=== PATIENT | female | born 1945 | race Two or more races ===

== ENCOUNTER 2016-10-03 14:48 | Observation (INO) | payer MEDICARE, OTHER ==
[~2016-10-03] VITALS: Ht 162.6 cm; Wt 89.6 kg
[~2016-10-03 14:48] MED LIST: CARV12.52 PO; DXM4T PO; ERGO500029 PO; FURO40TA4 PO; GABA100C PO; ISOS120T6 PO; LANT500T PO; LEVO50TA6 PO; LISI10TA2 PO; OXYC1TAB24 PO; PRE10 PO; SERT50TA9 PO; SIMV40TA5 PO
[2016-10-03 15:01] VITALS: BP 102/63; PULSE 79; RESP 18; O2SAT 92
--- NOTE | 2016-10-03 15:08 | ED.REPORT ---
HPI-General Illness Date of Service Oct 03, 2016 ED Provider: Dr. Carmona 71 y/o female with a hx of renal failure (on dialysis), HTN, DM, multiple CVA and KS (last 3 years ago) presents to the ED complaining of aching jaw pain bilaterally that radiates to her ears, onset two weeks ago. The pt states the pain was initially intermittent but has been constant for the last 3 days. Her pain is slightly exacerbated when she opens and closes her mouth. She denies any trauma to the jaw and is unable to associate it with anything. She also denies hx of TMJ, fever, chills, dizziness, abdominal pain and any change in pain post her dialysis appointment today. The pt did experience intermittent substernal chest pain and shortness of breath throughout last night, which resolved this morning. She states she was at rest when the pain came on. The pt has been taking Methadone 2.5mg. She states it relieves her pain temporarily.She has never experienced similar sx before. Nursing Notes Stated Complaint: JAW PAIN, DIALYSIS PATIENT Chief Complaint: General Complaint Nursing Notes Reviewed: Yes Allergies: Coded Allergies: hydrocodone bitartrate (Verified Allergy, Intermediate, Nausea,Vomiting, ) Scheduled Colestipol HCl (Colestid) 1 Gm Tablet 1 GM PO DAILY Furosemide (Furosemide) 80 Mg Tab 80 MG PO DAILY Losartan Potassium (Losartan Potassium) 100 Mg Tablet 100 MG PO DAILY Methadone (Methadone) 5 Mg Tablet 2.5 MG PO HS Omeprazole (Omeprazole) 20 Mg Capsule.dr 20 MG PO HS Sertraline HCl (Sertraline) 100 Mg Tablet 100 MG PO HS Simvastatin (Simvastatin) 40 Mg Tablet 40 MG PO HS Scheduled PRN Acetaminophen (Acetaminophen) 325 Mg Tablet 325 MG PO Q6H PRN PRN For Pain Calcium Carbonate (Tums) 500 Mg Tab.chew 1-2 MG PO TIDAC PRN PRN For Indigestion Loperamide HCl (Imodium A-D) 2 Mg Capsule 2 MG PO QID PRN PRN For Diarrhea or Loose Stool General Time Seen by MD: 15:08 Chief Complaint Other (jaw pain) Hx Obtained From: Patient Arrived By: Walk-in Sudden in Onset?: Yes Onset Occurred: More than a week ago... (2 weeks) Symptom Duration: Since onset Location: : Face (jaw bilaterally) Quality: Aching Severity: Current: Severe Severity: Maximum: Severe Recent Healthcare: No recent doctor visit Similar Sx Previous: No Past Medical History Past Medical History End stage renal disease on dialysis Reports: Diabetes mellitus, Hypertension, Stroke Past Surgical History catheter placement (dialysis) Reports: , Cholecystectomy, Hysterectomy Smoking History Never Smoker Social History Alcohol Use: Denies alcohol use Drug Use: Denies drug use Ambulatory Status Independent Review of Systems Reports: jaw pain bilaterally Full Review of Systems Constitutional: Denies: Chills, Fever Respiratory: Reports: Shortness of breath (now resolved) Cardiovascular: Reports: Chest pain (now resolved) GI: Denies: Abdominal pain Neurologic: Denies: Dizziness Complete sys rev & neg: except as marked. Physical Exam Vital Signs Vital Signs Date Time Temp Pulse Resp B/P Pulse Ox O2 Delivery O2 Flow Rate FiO2 10/03/16 19:58 79 16 117/52 92 Room Air 10/03/16 17:53 79 137/62 10/03/16 15:01 37.0 79 18 102/63 92 Room Air Initial VS: Reviewed Neck: Supple, Non-tender, Full range of motion Extremities: Vascular intact, Neuro intact, No swelling, No tenderness Skin: Warm, Dry, No cyanosis Neurologic: Alert, Oriented, Nonfocal General/Constitutional: Awake, Alert, Cooperative Distress / Hydration: Positive: Distress moderate Behavior: Positive: Tearful Head / Eyes: Atraumatic, Normocephalic No crepitus with range of motion of the jaw Neck: Atraumatic, Supple, Full range of motion Respiratory / Chest: Atraumatic, Breath sounds = bilat, No rhonchi, No wheezing , No chest tenderness Rales / Rhonchi: Positive: Rales bilateral bases Cardiovascular: Heart rate NL, Regular rhythm, Heart sounds NL, No gallop, No murmurs, No rubs No lower extremity edema Abdomen: Atraumatic, Soft, Non-tender Interpretation & Diagnostics Lab Results Interpretation Result Diagram: 10/04/16 0846 10/04/16 0507 Test 10/03/16 11:00 10/03/16 16:30 Urine Color Yellow (YELLOW) Urine Appearance Cloudy (CLEAR,HAZY) Urine pH 6.0 (5.0-8.0) Urine Specific [place] 1.015 (1.003-1.035) Urine Protein 100mg/dL (NEG,TRACE) Urine Glucose (UA) Negativemg/dL (NEGATIVE) Urine Ketones Tracemg/dL (NEGATIVE) Urine Occult Blood Trace (NEGATIVE) Urine Nitrite Negative (NEGATIVE) Urine Bilirubin Moderate (NEGATIVE) Urine Ictotest Negative (Negative) Urine Urobilinogen Normalmg/dL (NORMAL) Urine Leukocyte Esterase Moderate (NEGATIVE) Urine RBC 0-2/hpf (0-2) Urine WBC 6-10/hpf (0-5) Urine Epithelial Cells Many/hpf (NONE-MOD) Urine Crystals None seen (NONE SEEN) Urine Bacteria Many/hpf (NONE-FEW) Urine Hyaline Casts None/lpf (NONE) Urine Granular Casts None seen (NONE SEEN) Urine Waxy Casts None seen (NONE SEEN) Urine Red Blood Cell Casts None seen (NONE SEEN) Urine White Blood Cell Casts None seen (NONE SEEN) Urine Mucus None seen (None Seen) Urine Trichomonas None seen (NONE SEEN) Urine Yeast None (NONE SEEN) Urinalysis Comment None Urine Culture Reflexed Indicated Hold Jones Top Tube Received (Received) ECG Interpretation ECG Interpretation: Sinus rhythm. Rate 84. Left atrial enlargement No acute ST changes No significant change from 12/03/15 Time: 15:25 Interpreted by: ED physician X-Ray Chest Interpretation Chest Xray Interpretation: IMPRESSION: 1. Left basilar airspace disease probably represents atelectasis. Please correlate clinically to exclude pneumonia. 2. Cardiac enlargement. No overt heart failure. Dictated by: Naman Low M.D. on 10/03/2016 at 14:37 Approved by: Naman Low M.D. on 10/03/2016 at 14:39 View: Portable, 1 view Interpretation / Wet Read by: Interpret - Radiologist Re-Eval/Medical Decision Med Decision/Clinical Course 71-year-old female with a history of end-stage renal disease on dialysis Thursday with last dialysis today, coronary artery disease with 3 reported MIs (no stents or CABG), type II diabetes with poor control presents with 2 weeks of intermittent jaw pain bilaterally that is not worsened by palpation or mastication. The pain has become more constant for the past 3 days and last night she had nonexertional substernal chest pain at 8 out of 10 and shortness of breath that resolved on its own without medication. She did not seek care for this episode. Today she was experiencing severe bilateral jaw pain that was relieved with Dilaudid 0.5 mg IV. Troponin was elevated, and 2 hour troponin elevated further. I consulted with Dr. Tracey in cardiology who recommended heparinization, trending troponins, echo in the morning, possible stress test, and obtaining records from the [facility]. She notes that it would be difficult to exclude acute coronary syndrome given the presenting symptoms/risks factors in light of her renal failure. Dr. Daniel can be consulted if desired. Discussed with the patient and she agrees with this plan. Time of Eval: 18:49 Patient Status: Condition improved Re-Evaluation/Progress Note: Rechecked pt. She reports relief and is not expereincing any pain any more. Time of Eval: 20:22 Re-Evaluation/Progress Note: Rechecked pt. Discussed lab results, imaging results, diagnosis and plan to admit. Pt understands and agrees with the plan for admission. All questions addressed. Consultation #1: Referral / Consult Name: Treva Mg DO Consulted With: Hospitalist Call Returned at: 19:50 Toxicologist: Will see patient, Agrees with eval, Agrees with plan, Accepts admit Consultation #2: Referral / Consult Name: Charity Tracey MD Consulted With: Cardiology Call Returned at: 19:36 Note: Dr. Tracey recomeends trending troponin, heparinization and admit. Counseled Regarding: Diagnosis, Lab results, Need for admission Discharge & Departure Primary Impression: Chest pain Chest pain type: unspecified Qualified Code: R07.9 - Chest pain, unspecified Additional Impressions: Elevated troponin End stage renal failure on dialysis Anemia Anemia type: unspecified type Qualified Code: D64.9 - Anemia, unspecified Hypocalcemia Hypokalemia Hypomagnesemia Jaw pain Disposition: ADMITTED TO HOSPITAL Discharge Condition All VS Reviewed: Yes Condition: Stable Referrals: Gael Carrasquillo MD (PCP) Scribe Attestation Portions of this note were transcribed by Turner Santos. I, , personally performed the history, physical exam and medical decision- making;I reviewed and confirmed the accuracy of the information in the transcribed note. Signed by Kaitlynn Tate. 10/03/16 20:22 copies to: Gael Carrasquillo MD, Gary R DO Oct 03, 2016 15:08 Turner Santos Oct 03, 2016 16:43 Primary Impression: Chest pain Chest pain type: unspecified Qualified Code: R07.9 - Chest pain, unspecified Additional Impressions: Elevated troponin End stage renal failure on dialysis Anemia Anemia type: unspecified type Qualified Code: D64.9 - Anemia, unspecified Hypocalcemia Hypokalemia Hypomagnesemia Jaw pain Disposition: ADMITTED TO HOSPITAL Discharge Condition All VS Reviewed: Yes Condition: Stable Referrals: Gael Carrasquillo MD (PCP) Scribe Attestation Portions of this note were transcribed by Turner Santos. I, , personally performed the history, physical exam and medical decision- making;I reviewed and confirmed the accuracy of the information in the transcribed note. Signed by Kaitlynn Tate. 10/03/16 20:22 copies to: Gael Carrasquillo MD, Gary R DO Oct 03, 2016 15:08 Turner Santos Oct 03, 2016 16:43
--- NOTE | 2016-10-03 15:40 | DRSVH ---
PROCEDURE: X-RAY CHEST ONE VIEW, PORTABLE ([id number]) INDICATIONS: Chest pain. TECHNIQUE: One view of the chest was acquired. COMPARISON: [facility], , CHEST 1VW (PORTABLE), 06/22/2014, 15:26. FINDINGS: Surgical changes and devices: Previously seen right-sided central line catheter has been removed. Lungs and pleura: The aeration of the lungs is similar to the prior study. Minimal left basilar airs pace disease and left perihilar airspace disease appears to be present. No overt heart failure or la rge effusion is evident. Mediastinum: Mediastinal contours appear normal. Heart size appears enlarged. There is aortic athe rosclerosis. Bones and chest wall: No suspicious bony lesions. Overlying soft tissues appear unremarkable. IMPRESSION: 1. Left basilar airspace disease probably represents atelectasis. Please correlate clinically to exclude pneumonia. 2. Cardiac enlargement. No overt heart failure. Dictated by: Naman Low M.D. on 10/03/2016 at 14:37 Approved by: Naman Low M.D. on 10/03/2016 at 14:39
[2016-10-03 16:38] LABS: BASOPHILS % (AUTO) 0.5 % (0-3); MONOCYTES % (AUTO) 14.7 % (4-12); Mean Corpuscular Hemoglobin 30.2 pg (27.0-35.0); Mean Corpuscular Volume 93.8 fL (81-100); NEUTROPHILS % (AUTO) 64.6 % (40-74); Platelet Count 192 bil/L (150-400)
[2016-10-03] MEDS ORDERED: HYDROmorphone 1 mg/mL Inj IVPUSH ONE (16:40)
[2016-10-03 17:00] LABS: Magnesium 1.5 mg/dL (1.6-2.6)
[2016-10-03 17:07] LABS: TROPONIN T 0.076 ug/L (0.0-0.011)
[2016-10-03 17:53] VITALS: BP 137/62; PULSE 79
[2016-10-03] MEDS ORDERED: Alum-Mag Hydrox-Simeth 30 mL Suspension PO PRN ×2 (19:55→22:30)
[2016-10-03] MEDS ORDERED: Heparin 5,000 Unit/mL Inj IVPUSH ONE (19:55)
[2016-10-03] MEDS ORDERED: Ondansetron 2 mg/mL 2 mL Inj IVPUSH PRN ×2 (19:55→22:30)
[2016-10-03 19:58] VITALS: BP 117/52; PULSE 79; RESP 16; O2SAT 92
[2016-10-03] MEDS ORDERED: Heparin 5,000 Unit/mL Inj IVPUSH PRN (20:05)
[2016-10-03] MEDS ORDERED: Heparin 25K Unit/500mL 0.45 NS 25,000 UNIT in IV Premix 1 EACH IV SCH ×2 (20:05→23:05)
[2016-10-03 20:15] VITALS: BP 117/52; PULSE 79; RESP 16; O2SAT 92
[2016-10-03] MEDS ORDERED: COLE1TAB PO (20:36)
[2016-10-03] MEDS ORDERED: LOSA100T29 PO (20:36)
[2016-10-03] MEDS ORDERED: OMEP20CA11 PO (20:36)
[2016-10-03] MEDS ORDERED: FRSM80T PO (20:36)
[2016-10-03] MEDS ORDERED: SERT100T9 PO (20:36)
[2016-10-03] MEDS ORDERED: METH5TAB3 PO (20:36)
[2016-10-03] MEDS ORDERED: LOPE-147 PO (20:38)
[2016-10-03] MEDS ORDERED: CALC500T9 PO (20:38)
[2016-10-03 20:49] VITALS: BP 122/62; PULSE 90; RESP 20; O2SAT 92
[2016-10-03] MEDS ORDERED: Senna-Docusate 8.6-50 mg Tablet PO PRN (22:30)
[2016-10-03] MEDS ORDERED: Polyethylene Glycol (PEG) 17 Gm Powder PO PRN (22:30)
[2016-10-03] MEDS ORDERED: Atropine 1 mg/10 mL (Code) Syringe IVPUSH PRN (22:30)
[2016-10-03] MEDS: Sodium Chloride LOK Flush 10 mL Syringe IVFLUSH SCH (23:30)
[2016-10-04] VITALS (7 sets, daily range): BP systolic 94–122; BP diastolic 37–62; PULSE 76–86; RESP 16–18; O2SAT 93–97
--- NOTE | 2016-10-04 | NUR ---
Admit note Pt arrived to [facility] at 2039. Pt stating came to ER due to increased Jaw pain, pt reports jaw pain at 2/10 upon arrival. Placed pt on tele. Pt has heparin drip infusing from ER at 1000 units/hr. Pt is alert and oriented X3. Med rec and admit questions done by admit RN.
--- NOTE | 2016-10-04 00:49 | PCM.HPMED ---
Subjective Date of Service Oct 04, 2016 Primary Provider: Admitting Physician: Treva Mg DO Primary Care Physician: Gael Carrasquillo MD Attending Physician: Treva Mg DO Admit Status: From the Emergency Department Chief Complaint: Chest pain, jaw pain History of Present Illness: Patient is a 71 y/o female with a hx of ESRD on dialysis, HTN, DM, multiple CVA and CA (last 3 years ago) who presents with aching jaw pain bilaterally that radiates to her ears, onset two weeks ago. She states the pain was initially intermittent but has been constant for the last 3 days. Her pain is slightly exacerbated when she opens and closes her mouth, but denies any worsening with exertion. She denies any trauma to the jaw and is unable to associate it with anything. The pt did experience intermittent substernal chest pain and shortness of breath throughout last night, which resolved this morning. The chest pain is a non radiating, aching substernal pain that occurs at rest intermittently. Her shortness of breath also occurs intermittently at rest and lasts on average about 30 seconds. The pt has been taking Methadone 2.5mg. She states it relieves her pain temporarily. She has never experienced similar sx before. She denies hx of TMJ, fever, chills, dizziness, abdominal pain, vomiting , diaphoresis, palpitations, dizziness, or fainting. In the ED, BP was 117/52, Hb 9.8, Hct 30.4, K 3.1, Cl 89, CO2 31, Cr 2.82, glucose 132, Mg 1.5, troponin 0.076, CRP 4.7, ESR 59. CXR shows left basilar atelectasis and cardiomegaly without pulmonary edema. Review of Systems: Comprehensive review of systems conducted and was negative except for the pertinent positives listed above. Allergies Coded Allergies: hydrocodone bitartrate (Verified Allergy, Intermediate, Nausea,Vomiting, ) Home Medications Furosemide 80 mg daily Imodium 4 mg QID PRN Losartan 100 mg daily Methadone 2.5 mg qhs Omeprazole 20 mg qhs Sertraline 100 mg qhs Simvastation 40 mg qhs PMH End-stage renal disease, on hemodialysis History of chronic congestive heart failure, diastolic History of arteriosclerotic cardiovascular disease, status post NSTEMI. Obesity Hyperlipidemia. History of cerebrovascular accident. (Patient reports a history of 7-9 TIAs) Morbid obesity. Hypertension. Type 2 diabetes mellitus. History of septic thrombophlebitis in the left upper extremity, Dec 2012. Anemia, chronic, secondary to end-stage renal disease Diabetic neuropathy, severe retinopathy with patient losing her vision, and nephropathy Surgical History Catheter placement (dialysis) Cholecystectomy Hysterectomy Family History Father: CA, stroke Mother: Stroke Social History Hx Alcohol Use: No Hx Substance Use: No Hx Tobacco Use: Yes ("now and then") Smoking Status: Never Smoker Exam Vital Signs Vital Sign - Last Date Time Temp Pulse Resp B/P Pulse Ox O2 Delivery O2 Flow Rate FiO2 10/04/16 00:35 36.7 80 18 94/37 93 Room Air Exam General: Alert, Oriented X3, Cooperative, No acute distress Head: Normocephalic, atraumatic. External ears normal. Eyes: PERRLA, EOMI. Anicteric sclerae. Mouth: Mouth normal, Mucous membranes moist/pink. No crepitus with range of motion of the jaw Neck: Neck supple with full range of motion. Chest& Lungs: Clear to auscultation bilaterally with no crackles, wheezes, or rhonchi. good inspiratory effort Cardiovascular: Regular rate/rhythm, Normal S1, Normal S2, No murmurs/rubs/ gallops, pulses equal upper and lower extremities GI: Non-tender, Non-distended, No masses, Normoactive bowel tones, Soft : no mejia in place Musculoskeletal: Normal range of motion, no joint erythema / edema Extremities: No cyanosis/clubbing/edema bilaterally Neurological: Grossly neurologically intact. Normal speech Lymph: no cervical or supraclavicular lymphadenopathy Psych: normal affect Lab and Diagnostics Result Diagram: 10/03/16 1630 10/03/16 1630 X-Rays, CTs and MRIs Patient Name: ELIAN SAVAGE MR#: [id number] Location: [facility] [place] Ordering Phys: Miguel Carmona DO Date of Service: 10/03/16 1509 PROCEDURE: X-RAY CHEST ONE VIEW, PORTABLE ([id number]) INDICATIONS: Chest pain. TECHNIQUE: One view of the chest was acquired. COMPARISON: [facility], , CHEST 1VW (PORTABLE), 06/22/2014, 15:26. FINDINGS: Surgical changes and devices: Previously seen right-sided central line catheter has been removed. Lungs and pleura: The aeration of the lungs is similar to the prior study. Minimal left basilar airspace disease and left perihilar airspace disease appears to be present. No overt heart failure or large effusion is evident. Mediastinum: Mediastinal contours appear normal. Heart size appears enlarged. There is aortic atherosclerosis. Bones and chest wall: No suspicious bony lesions. Overlying soft tissues appear unremarkable. IMPRESSION: 1. Left basilar airspace disease probably represents atelectasis. Please correlate clinically to exclude pneumonia. 2. Cardiac enlargement. No overt heart failure. Dictated by: Naman Low M.D. on 10/03/2016 at 14:37 Approved by: Naman Low M.D. on 10/03/2016 at 14:39 Assessment & Plan Patient is a 71 y/o female with a hx of ESRD on dialysis, HTN, DM, multiple CVA and CA (last 3 years ago) who presents with aching jaw pain and chest pain. Acute chest pain. Present on admission. - Pt reports chest pain, jaw pain, and shortness of breath which occurs intermittently and not associated with exercise. While this appears to be noncardiac, she has a significant cardiovascular personal and family history. Troponin is chronically elevated, but increased on repeated draws. Per Dr. Tracey , will start heparin gtt - Trend troponin - Heparin gtt - ASA 325 once followed by 81 mg daily - No beta allison given hypotension - Atorvastatin 40mg qhs - Plavix 300 mg once followed by 75 mg daily - Echocardiogram in AM - PRN Nitro and morphine - O2 as needed - Monitor on telemetry - lipid panel, hgba1c pending - Obtain records from [facility] - Dr. Daniel will see pt in AM. Please contact. We appreciate his input. End stage renal disease on dialysis - Dialysis on MWF. Pt had Thursday dialysis. - Nephrology consult if pt stays until Thursday Diabetes mellitus - Glucose 132 on admission. Pt not on home meds. - Monitor glucose daily in [facility] Electrolyte abnormalities, acute. - Hypokalemia - likely secondary to hypomagnesemia. Gave KCl 20 meq PO. - Hypomagnesemia. Gave magnesium sulfate 2g once. Recheck Mg in AM. History of chronic diastolic congestive heart failure. Last echo 01/01/14: The left ventricle is normal in size. There is normal left ventricular wall thickness. The ejection fraction is estimated to be 60-65%. Hypertension - Continue home furosemide and losartan Hx of stroke - Continue simvastatin Depression - Continue home sertraline Chronic pain - Continue home methadone - Bowel regimen as needed - Antiemetic as needed Patient is admitted under observation status with expected length of stay less than 2 midnights due to severity of presenting symptoms, risk of adverse event, and complexity of treatment plan. Pain Evaluation: Adequate Pain Control GI Prophylaxis: Not indicated VTE Prophylaxis: Other (heparin gtt) Resuscitation Status: DNR/DNI:Do Not Resuscitate/Intubate Gonzalez Plascencia Oct 04, 2016 00:49 Treva Mg DO Oct 04, 2016 04:21
[2016-10-04] MEDS ORDERED: Potassium Chloride 20 mEq SR Tablet PO ONE (00:55)
[2016-10-04] MEDS ORDERED: Magnesium Sulf 2 Gm/50mL Water 2 GM in IV Premix 1 EACH IV ONE (00:55)
[2016-10-04] MEDS ORDERED: 0.9% Sodium Chloride 100 ML ONE (01:41)
[2016-10-04] MEDS: Heparin 5,000 Unit/mL Inj IVPUSH PRN ×2 (04:19→14:51)
[2016-10-04 05:48] LABS: BASOPHILS % (AUTO) 0.8 % (0-3); EOSINOPHILS % (AUTO) 5.6 % (0-5); MONOCYTES % (AUTO) 16.7 % (4-12); Mean Corpuscular Hemoglobin 30.6 pg (27.0-35.0); Mean Corpuscular Volume 94.6 fL (81-100); NEUTROPHILS % (AUTO) 44.1 % (40-74); Platelet Count 199 bil/L (150-400)
[2016-10-04 06:29] LABS: ERYTHROCYTE SEDIMENTATION RATE 62 mm/hr (0-40)
[2016-10-04] MEDS ORDERED: Pantoprazole 20 mg ER24 Tablet PO SCH (07:30)
[2016-10-04 08:06] LABS: Magnesium 2.4 mg/dL (1.6-2.6)
[2016-10-04 08:08] LABS: TROPONIN T 0.095 ug/L (0.0-0.011)
[2016-10-04] MEDS: Sodium Chloride LOK Flush 10 mL Syringe IVFLUSH SCH ×2 (08:15→16:30)
--- NOTE | 2016-10-04 10:14 | NUR ---
Heparin gtt PTT result back: 63.9. Per protocol, no change. Continue infusion at 1200unit/hr (24ml/hr). Next PTT in 6 hours.
[2016-10-04 11:05] LABS: Creatine Kinase 125 U/L (21-215)
[2016-10-04 12:25] LABS: APPEARANCE,URINE CLOUDY (CLEAR,HAZY); COLOR,URINE YELLOW (YELLOW); OCCULT BLOOD,URINE TRACE (NEGATIVE)
[2016-10-04 12:26] LABS: UROBILINOGEN,URINE NORMAL (NORMAL)
[2016-10-04 12:35] LABS: ICTOTEST,URINE NEGATIVE (Negative)
--- NOTE | 2016-10-04 12:44 | PCM.PNMED ---
Subjective Date of Service Oct 04, 2016 Subjective Patient seen and examined. She denies jaw or chest pain at this point. Vitals stable. Exam Vital Signs Vital Sign - Last Date Time Temp Pulse Resp B/P Pulse Ox O2 Delivery O2 Flow Rate FiO2 10/04/16 08:51 80 10/04/16 08:12 36.7 18 106/53 97 Room Air Intake and Output 10/03/16 10/03/16 10/04/16 Cumulative From/Thru 15:00 23:00 07:00 10/03/16 15:01 - 10/04/16 06:08 Intake Total 320 ml 320 ml Output Total 0 ml 0 ml Balance 320 ml 320 ml Intake Oral 320 ml 320 ml Output Urine Total 0 ml 0 ml Exam General: Alert, Oriented X3, Cooperative, No acute distress Head: Normocephalic, atraumatic. External ears normal. Eyes: PERRLA, EOMI. Anicteric sclerae. Mouth: Mouth normal, Mucous membranes moist/pink. No crepitus with range of motion of the jaw Neck: Neck supple with full range of motion. Chest& Lungs: Clear to auscultation bilaterally with no crackles, wheezes, or rhonchi. good inspiratory effort Cardiovascular: Regular rate/rhythm, Normal S1, Normal S2, No murmurs/rubs/ gallops, pulses equal upper and lower extremities GI: Non-tender, Non-distended, No masses, Normoactive bowel tones, Soft : no mejia in place Musculoskeletal: Normal range of motion, no joint erythema / edema Extremities: No cyanosis/clubbing/edema bilaterally Neurological: Grossly neurologically intact. Normal speech Lymph: no cervical or supraclavicular lymphadenopathy Psych: normal affect Lab and Diagnostics Result Diagram: 10/04/16 0846 10/04/16 0507 X-Rays, CTs and MRIs Patient Name: ELIAN SAVAGE MR#: [id number] Location: [facility] Ordering Phys: Miguel Carmona DO Date of Service: 10/03/16 1509 PROCEDURE: X-RAY CHEST ONE VIEW, PORTABLE ([id number]) INDICATIONS: Chest pain. TECHNIQUE: One view of the chest was acquired. COMPARISON: [facility], , CHEST 1VW (PORTABLE), 06/22/2014, 15:26. FINDINGS: Surgical changes and devices: Previously seen right-sided central line catheter has been removed. Lungs and pleura: The aeration of the lungs is similar to the prior study. Minimal left basilar airspace disease and left perihilar airspace disease appears to be present. No overt heart failure or large effusion is evident. Mediastinum: Mediastinal contours appear normal. Heart size appears enlarged. There is aortic atherosclerosis. Bones and chest wall: No suspicious bony lesions. Overlying soft tissues appear unremarkable. IMPRESSION: 1. Left basilar airspace disease probably represents atelectasis. Please correlate clinically to exclude pneumonia. 2. Cardiac enlargement. No overt heart failure. Dictated by: Naman Low M.D. on 10/03/2016 at 14:37 Approved by: Naman Low M.D. on 10/03/2016 at 14:39 12-lead ECG EKG 10/03/16 15:25 . Sinus rhythm . Probable left atrial enlargement . Borderline ST depression, lateral leads . When compared with ECG of 03-Dec-2015 13:37:20, . Significant repolarization change . Change in clinical status EKG 10/03/16 16:56 Sinus rhythm . Probable left atrial enlargement . Nonspecific repol abnormality, diffuse leads . When compared with ECG of 03-Oct-2016 15:25:00, . Change in interpretation without significant change in waveform Cardiac Echo Impressions Interpretation Summary 1) Borderline dilated left ventricle with borderline reduced systolic function (EF 50-55%). 2) No obvious focal wall motion abnormalities noted but poor endocardial definition reduces the sensitivity for the detection of such. 3) Borderline right ventricular enlargement and normal function. 4) Calcific mitral valve with mild mitral stenosis. 5) Moderate to severe mitral regurgitation present. 6) Mild aortic stenosis present (valve area 1.5cm2, severity ratio 0.49, mean gradient 8mmHg). 7) Pulmonary hypertension, estimated systolic pulmonary pressure of 59mmHg. 8) Compared to the Echo done 03/03/2014, all the above abnormalities are new on today's study. Assessment & Plan Patient is a 71 y/o female with a hx of ESRD on dialysis, HTN, DM, multiple CVA and NH (last 3 years ago) who presents with aching jaw pain and chest pain. Acute chest pain. Present on admission. - Pt reports chest pain, jaw pain, and shortness of breath which occurs intermittently and not associated with exercise. While this appears to be noncardiac, she has a significant cardiovascular personal and family history. Troponin is chronically elevated, but increased on repeated draws. - Trend troponin - EKG as noted above - Heparin gtt - ASA - No beta allison given hypotension - Atorvastatin 40mg qhs - Plavix 300 mg given at ER - Echocardiogram as noted - PRN Nitro and morphine - O2 as needed - Monitor on telemetry - lipid panel, hgba1c pending - Obtain records from [facility] - Cardiology on consult. End stage renal disease on dialysis - Dialysis on MWF. Pt had Thursday dialysis. - Nephrology consult if pt stays until Thursday Urinalysis positive for moderate leukocyte esterase - wbcs minimal - nitrites negative - asymptomatic - await cultures, no abx for now Diabetes mellitus - Glucose 132 on admission. Pt not on home meds. - Monitor glucose daily in BMP Electrolyte abnormalities, acute. - Hypokalemia - likely secondary to hypomagnesemia. Gave KCl 20 meq PO at admission, will give another dose now. - Hypomagnesemia. resolved History of chronic diastolic congestive heart failure. Last echo 01/01/14: The left ventricle is normal in size. There is normal left ventricular wall thickness. The ejection fraction is estimated to be 60-65%. Hypertension - Continue home furosemide and losartan Hx of stroke - Continue simvastatin Depression - Continue home sertraline Chronic pain - Continue home methadone - Bowel regimen as needed - Antiemetic as needed Disposition, pending cardiology evaluation.. GI Prophylaxis: Not indicated VTE Prophylaxis: Other (heparin gtt) Resuscitation Status: DNR/DNI:Do Not Resuscitate/Intubate Dale Schwab MD Oct 04, 2016 12:44
--- NOTE | 2016-10-04 14:55 | NUR ---
Heparin gtt PTT result back: 48.5. Per protocol, give 1000unit bolus and increase rate by 50unit/hr. New rate: 1250unit/hr (25ml/hr). Next PTT in 6 hours.
--- NOTE | 2016-10-04 15:05 | DRSVH ---
[facility] [address] [place] [address] Echocardiogram Report Name: ELIAN SAVAGE Study Date: 10/04/2016 Height: 64 in Hospital Exam Location: [facility] Weight: 198 lb Gender: Female BSA: 1.9 m2 : 1945 Age: 71 yrs BP: 106/53 mmHg Reason For Study: Chest pain Ordering Physician: Performed By: Daphne Matthews Referring Physician: Gael Muro Interpretation Summary 1) Borderline dilated left ventricle with borderline reduced systolic function (EF 50-55%). 2) No obvious focal wall motion abnormalities noted but poor endocardial definition reduces the sensitivity for the detection of such. 3) Borderline right ventricular enlargement and normal function. 4) Calcific mitral valve with mild mitral stenosis. 5) Moderate to severe mitral regurgitation present. 6) Mild aortic stenosis present (valve area 1.5cm2, severity ratio 0.49, mean gradient 8mmHg). 7) Pulmonary hypertension, estimated systolic pulmonary pressure of 59mmHg. 8) Compared to the Echo done 03/03/2014, all the above abnormalities are new on today's study. Procedure: A two-dimensional transthoracic echocardiogram with color flow and Doppler was performed. Comparison is made with the echocardiogram of 03-03. The patient was in normal sinus rhythm during the exam. Left Ventricle: The left ventricle is borderline dilated. There is normal left ventricular wall thickness. The ejection fraction is estimated to be 50- 55%. Left ventricular systolic function is borderline reduced. There are no obvious focal wall motion abnormalities noted but poor endocardial definition reduces the sensitivity for the detection of such. Assessment of diastolic parameters indicates a restrictive filling pattern of the left ventricle consistent with significantly elevated filling pressures. Right Ventricle: Borderline right ventricular enlargement. The right ventricular systolic function is normal. Atria: The left atrium is severely dilated. Right atrial size is normal. A patent foramen ovale is suspected. Mitral Valve: The mitral valve leaflets appear mildly thickened, but open well. There is moderate mitral annular calcification. There is mild mitral stenosis. There is moderate to severe mitral regurgitation. Aortic Valve: The aortic valve is moderately calcified. Leaflet mobility is mild to moderately reduced. The calculated aortic valve area is 1.5 cm2. The peak aortic velocity is 2.O m/sec. The peak aortic velocity on the previous exam was 1.6 m/sec. The aortic valve mean gradient is 8 mmHg. Severity ratio is 0.49. There is mild aortic stenosis. There is trace aortic regurgitation. Tricuspid Valve: The tricuspid valve leaflets are thin and pliable. There is mild to moderate tricuspid regurgitation. The right ventricular systolic pressure is estimated at 59 mmHg assuming a right atrial pressure of 3 mm Hg. Pulmonic Valve: The pulmonic valve is not well seen, but is grossly normal. There is trace pulmonic regurgitation. Great Vessels: The aortic root is normal size. The dimensions of the ascending aorta are normal. The IVC is of normal diameter and collapses greater than 50% with a sniff. This suggests a low right atrial pressure of 3 mm Hg. Pericardium/ Pleura There is no pericardial effusion. There is no pleural effusion. MMode/2D Measurements & Calculations LVIDd: 5.6 cm LA dimension: 5.2 cm RA long axis LVOT diam: 2.0 cm LVIDs: 3.4 cm AoV Opening FS: 40.2 % LA A2 area: 26.1 cm RA area IVSd: 0.89 cm LA A4 area: 30.7 cm Ao root diam LVPWd: 1.1 cm LA length (vol) : 17.5 cm RA vol Aortic Jxn: 2.3 cm LA vol: 113.1 ml : 51.2 ml Ao Arch Diam (Prox LA vol index RA Trans): 3.0 cm : 26.3 mm/ RVDd major IVC diam: 1.9 cm : 5.9 cm LV cobb. diameter/BSA LV sys. diameter/BSA RVD1 (basal) RVD2 (mid): 3.2 cm (cm/m^2): 2.9 (cm/m^2): 1.7 Doppler Measurements & Calculations Ao V2 max MV E max abdias MV E/A: 1.8 TR max abdias : 202.6 cm/sec : 164.4 cm/sec Med Peak E' Abdias : 372.8 cm/sec Ao max PG MV A max abdias TR max P.6 mmHg : 16.4 mmHg : 91.5 cm/sec E/E' med: 37.0 PA V2 max Ao mean PG MV P1/2t Lat Peak E' Abdias : 76.4 cm/sec : 55.7 msec PA mean P.2 mmHg LVOT Max Abdias E/E' lat: 30.7 : 91.5 cm/sec E/e' average: 33.9 BRITTANIE(I,D): 1.5 cm Pulm A Revs Dur sev ratio MV A dur: 0.11 sec MV dec time MV P1/2t max abdias Ao V2 mean LV V1 max PG : 0.19 sec : 134.4 cm/sec MVA(P1/2t) Ao V2 VTI: 42.6 cm LV V1 VTI: 20.7 cm : 4.0 cm2 BRITTANIE(V,D): 1.4 cm2 MR flow rate PA V2 mean BRITTANIE indexed to BSA Pulm A Revs Dur - MV : 150.7 cm3/sec : 50.1 cm/sec (cm^2/m^2): 0.78 A Dur: -0.03 msec MR PISA radius Reading Physician:03:04 PM
--- NOTE | 2016-10-04 15:15 | NUR ---
Social Work: Multidisciplinary Rounds Pt discussed in rounds. MD states cardiology will see pt today. LINE TESTER will complete initial assessment tomorrow. Pt from home with spouse. PERI Hill
[2016-10-04] MEDS ORDERED: ACET325T51 PO (16:27)
--- NOTE | 2016-10-04 16:29 | PCM.DIMED ---
Discharge Instructions Date of Service Oct 04, 2016 Dates of Hospitalization Oct 03, 2016 at 20:11 Discharge Diagnosis Discharge Diagnosis Jaw pain Medication Instructions Additional med instructions tylenol prn, not greater than 2000mg a day. Patient Instructions Follow-up Provider: Gael Carrasquillo MD Follow-up with PCP in: 1 week (Need an outpatient stress test. Cardiology recs : aggressive fluid removal during dialysis, and repeat echo in 2 hears. ) Dale Schwab MD Oct 04, 2016 16:29
--- NOTE | 2016-10-04 16:36 | PCM.CHPCAR ---
Consult Subjective Date of service Oct 04, 2016 Date of admit Oct 03, 2016 at 20:11 Provider Requesting Consult Primary Care Physician Primary Care Physician: Gael Carrasquillo MD Chief Complaint jaw pain History of Present Illness 71 yo W h/o ESRD on HD, prior CVA, coronary disease status post prior MIs, hypertension, and diabetes admitted with jaw pain. Patient states that she was in her usual state of health until about 3 weeks ago when she started having bilateral jaw pain radiating to her ear. It was worse at nighttime and there was no clear exertional component to it. She will try massage that would help for few minutes. She also had dyspnea 2 nights ago that resolved with hemodialysis yesterday. She denies having chest discomfort, lightheadedness, syncope, nausea, or vomiting. Patient states that she continues to smoke rarely as she is quite disabled from her chronic illnesses and smoking is only thing she enjoys. She also has significant visual impairment and cannot drive. Review of Systems Review of Systems Per history of present illness and otherwise unremarkable PMH Past Medical History # ESRD on HD # Prior CVA # CAD s/p prior OR # HTN # Diabetes Bedside Blood Glucose: 77 Scheduled Colestipol HCl (Colestid) 1 Gm Tablet 1 GM PO DAILY (Reported) Furosemide (Furosemide) 80 Mg Tab 80 MG PO DAILY (Reported) Losartan Potassium (Losartan Potassium) 100 Mg Tablet 100 MG PO DAILY (Reported ) Methadone (Methadone) 5 Mg Tablet 2.5 MG PO HS (Reported) Omeprazole (Omeprazole) 20 Mg Capsule.dr 20 MG PO HS (Reported) Sertraline HCl (Sertraline) 100 Mg Tablet 100 MG PO HS (Reported) Simvastatin (Simvastatin) 40 Mg Tablet 40 MG PO HS (Reported) Scheduled PRN Acetaminophen (Acetaminophen) 325 Mg Tablet 325 MG PO Q6H PRN PRN For Pain Calcium Carbonate (Tums) 500 Mg Tab.chew 1-2 MG PO TIDAC PRN PRN For Indigestion (Reported) Loperamide HCl (Imodium A-D) 2 Mg Capsule 2 MG PO QID PRN PRN For Diarrhea or Loose Stool (Reported) Discontinued Medications Carvedilol (Carvedilol) 12.5 Mg Tablet 12.5 TAB PO QAM (Reported) Carvedilol (Carvedilol) 12.5 Mg Tablet 12.5 TAB PO QPM (Reported) with food Dexamethasone (Dexamethasone) 4 Mg Tablet 10 MG PO DAILY 10mg of decadron on 12/03 and 12/04 Ergocalciferol (Vitamin D2) (Vitamin D2) 50,000 Unit Capsule 50,000 UNIT PO QW ( Reported) Furosemide (Furosemide) 40 Mg Tablet 1 TAB PO DAILY (Reported) Gabapentin (Neurontin) 100 Mg Capsule 200 MG PO HS Isosorbide MN ER (Isosorbide MN ER) 120 Mg Tab.er.24h 1 TAB PO QAM (Reported) Lanthanum Carb Chew (Fosrenol Chew) 500 Mg Tab.chew 1 TAB PO TIDWM (Reported) Levothyroxine (Levothyroxine) 50 Mcg Tablet 1 TAB PO QAM (Reported) Lisinopril (Lisinopril) 10 Mg Tablet 1 TAB PO QAM (Reported) for blood pressure Prednisone (PredniSONE) 10 Mg Tablet 1 TAB PO DAILY (Reported) Sertraline HCl (Sertraline) 50 Mg Tablet 1 TAB PO QAM (Reported) oxyCODONE-Acetaminophen 5-325 mg (oxyCODONE-Acetaminophen 5-325 mg) 1 Each Tablet 1 TAB PO Q6H PRN PRN For Pain oxyCODONE-Acetaminophen 5-325 mg (oxyCODONE-Acetaminophen 5-325 mg) 1 Each Tablet 1-2 TAB PO Q6H PRN PRN For Pain Current Inpatient Medications Current Medications Al Hydrox/Mg Hydrox/Simethicone 30 ml Q6 PRN PO; Start 10/03/16 at 19:55; Stop 10/03/16 at 22:45; Status DC Ondansetron HCl Dose range: 4 mg to 8 mg Q4H PRN IVPUSH; Start 10/03/16 at 19:55 ; Stop 10/03/16 at 22:45; Status DC Acetaminophen 975 mg Q6H PRN PO; Start 10/03/16 at 19:55; Stop 10/03/16 at 22:45 ; Status DC Heparin Sodium (Porcine) Per Protocol for a... PRN PRN IVPUSH; Start 10/03/16 at 20:05; Stop 10/03/16 at 23:08; Status DC Sodium Chloride 10 ml ROBERT IVFLUSH Last administered on 10/04/16 08:15; Admin Dose 10 ML; Start 10/04/16 at 00:30 Aspirin 81 mg DAILY PO Last administered on 10/04/16 08:14; Admin Dose 81 MG; Start 10/04/16 at 08:30 Clopidogrel Bisulfate 75 mg DAILY PO Last administered on 10/04/16 08:15; Admin Dose 75 MG; Start 10/04/16 at 08:30 Al Hydrox/Mg Hydrox/Simethicone 30 ml Q6 PRN PO; Start 10/03/16 at 22:30 Ondansetron HCl 4-8 mg prn nausea Q4 PRN IVPUSH; Start 10/03/16 at 22:30 Senna 1 tablet BID PRN PO; Start 10/03/16 at 22:30 Polyethylene Glycol 17 gm DAILY PRN PO; Start 10/03/16 at 22:30 Acetaminophen 325 mg Q6 PRN PO; Start 10/03/16 at 22:30 Nitroglycerin 0.4 mg Q5MIN PRN SL; Start 10/03/16 at 22:30 Morphine Sulfate 1-5 mg prn pain not relie... Q5M PRN IVPUSH; Start 10/03/16 at 22:30 Atropine Sulfate - Q5MIN PRN IVPUSH; Start 10/03/16 at 22:30 Heparin Sodium (Porcine) Per Protocol for a... PRN PRN IVPUSH Last administered on 10/04/16 14:51; Admin Dose 1,000 UNIT; Start 10/03/16 at 23:05 Loperamide HCl 4 mg TIDAC PO; Start 10/04/16 at 07:30; Stop 10/04/16 at 07:30; Status DC Loperamide HCl 4 mg TIDAC PO Last administered on 10/03/16 23:39; Admin Dose 4 MG; Start 10/03/16 at 23:25; Stop 10/04/16 at 04:26; Status DC Methadone HCl 2.5 mg HS PO Last administered on 10/04/16 01:50; Admin Dose 2.5 MG; Start 10/04/16 at 00:56 Sertraline HCl 100 mg HS PO; Start 10/04/16 at 21:00 Atorvastatin Calcium 20 mg HS PO; Start 10/04/16 at 21:00; Stop 10/04/16 at 21:00 ; Status DC Pantoprazole 20 mg DAILYAC PO Last administered on 10/04/16 08:15; Admin Dose 20 MG; Start 10/04/16 at 07:30 Atorvastatin Calcium 40 mg HS PO; Start 10/04/16 at 21:00 Allergies: Coded Allergies: hydrocodone bitartrate (Verified Allergy, Intermediate, Nausea,Vomiting, ) Family History Family History Kids are healthy Social History Hx Alcohol Use: NoHx Substance Use: NoHx Tobacco Use: Yes ("now and then") Smoking Status: Never Smoker Exam Vital Signs Vital Sign - Last Date Time Temp Pulse Resp B/P Pulse Ox O2 Delivery O2 Flow Rate FiO2 10/04/16 12:43 36.8 81 16 122/61 96 Room Air Intake and Output 10/03/16 10/03/16 10/04/16 Cumulative From/Thru 14:59 22:59 06:59 10/03/16 15:01 - 10/04/16 06:08 Intake Total 320 ml 320 ml Output Total 0 ml 0 ml Balance 320 ml 320 ml Intake Oral 320 ml 320 ml Output Urine Total 0 ml 0 ml Objective General appearance: No apparent distress, well-nourished, pleasant, cooperative HEET: Normocephalic atraumatic, no scleral icterus, tongue midline, mucous membranes moist Neck: right jaw tender to palpation, neck is supple Cardiovascular: RRR, normal S1 and normal S2, no murmurs/rubs/gallops, PMI nondisplaced, no JVD, no peripheral edema Respiratory: Good aeration, CTAB Abdomen: Soft, nontender, nondistended, + bowel sounds Neuro: Alert, no facial droop, tongue midline, no gross motor deficits Psych: appropriate affect Skin: no rashes on face, neck, and lower extremities Lab and Diagnostics Labs Troponin T 0.085 (10/03/2016) -> 0.095 -> 0.103 CK and CK-MB normal Result Diagram: 10/04/16 0846 10/04/16 0507 X-Rays, CTs and MRIs Echo 10/04/2016: 1) Borderline dilated left ventricle with borderline reduced systolic function (EF 50-55%). 2) No obvious focal wall motion abnormalities noted but poor endocardial definition reduces the sensitivity for the detection of such. 3) Borderline right ventricular enlargement and normal function. 4) Calcific mitral valve with mild mitral stenosis. 5) Moderate to severe mitral regurgitation present. 6) Mild aortic stenosis present (valve area 1.5cm2, severity ratio 0.49, mean gradient 8mmHg). 7) Pulmonary hypertension, estimated systolic pulmonary pressure of 59mmHg. 8) Compared to the Echo done 03/03/2014, all the above abnormalities are new on today's study. 12-lead ECG EKG on admission showed sinus rhythm with nonspecific ST changes. Assessment & Plan Assessment 71 yo W h/o ESRD on HD, prior CVA, coronary disease status post prior MIs, hypertension, and diabetes admitted with jaw pain: # Jaw pain: Patient's jaw pain is reproducible on palpation. Furthermore, it is nonexertional in nature. Therefore, I do not think patient jaw pain is angina or anginal equivalent. Her troponins are mildly elevated but I think this is from her end-stage renal disease as her CK and CK-MB are normal. Her ECG also does not show any significant ST changes suggestive of ischemia. Her echo done today showed low normal LV function with no obvious wall motion abnormalities. I spent significant time educating the patient condition and answered her questions. Recommendations as below: - Continue aspirin 81 mg daily - Continue atorvastatin 40 mg daily - No need for clopidogrel - Consider stress test as outpatient through primary care provider - Recommend using acetaminophen up to 2000mg in 24 hours for jaw pain control. Okay to try ice pack or heat packs. # Moderate to severe mitral regurgitation with pulmonary hypertension: asymptomatic now but she did have dyspnea two days ago that resolved with dialysis. Plan: - Recommend aggressive fluid removal during hemodialysis - Recommend f/u Echo in 6 months # Mild aortic stenosis: asymptomatic. Serial echo in 2 years instead of 3-5 years as I expected her aortic stenosis to progress faster due to her ESRD # ESRD on HD: defer to lodging facilities manager but consider more aggressive fluid removal during hemodialysis Pain Evaluation: Adequate Pain Control VTE Prophylaxis: Other (heparin gtt) Resuscitation Status: DNR/DNI:Do Not Resuscitate/Intubate Copies to: Aly Cordova MD, Bhrigu R MD Oct 04, 2016 16:36
--- NOTE | 2016-10-04 16:51 | PCM.DC.MED ---
Discharge Summary Date of Service Oct 04, 2016 Dates of Hospitalization Date of Hospital Admission Oct 03, 2016 at 20:11 Date of Discharge: Oct 05, 2016 Providers: Admitting Physician: Treva Mg DO Primary Care Physician: Gael Carrasquillo MD Attending Physician: Kem Schwab MD Diagnosis at Time of Discharge Diagnosis at Time of Discharge Jaw pain Procedures XRay, CTs & MRIs Patient Name: ELIAN SAVAGE MR#: [id number] Location: [facility] [place] Ordering Phys: Miguel Carmona DO Date of Service: 10/03/16 1509 PROCEDURE: X-RAY CHEST ONE VIEW, PORTABLE ([id number]) INDICATIONS: Chest pain. TECHNIQUE: One view of the chest was acquired. COMPARISON: [facility], , CHEST 1VW (PORTABLE), 06/22/2014, 15:26. FINDINGS: Surgical changes and devices: Previously seen right-sided central line catheter has been removed. Lungs and pleura: The aeration of the lungs is similar to the prior study. Minimal left basilar airspace disease and left perihilar airspace disease appears to be present. No overt heart failure or large effusion is evident. Mediastinum: Mediastinal contours appear normal. Heart size appears enlarged. There is aortic atherosclerosis. Bones and chest wall: No suspicious bony lesions. Overlying soft tissues appear unremarkable. IMPRESSION: 1. Left basilar airspace disease probably represents atelectasis. Please correlate clinically to exclude pneumonia. 2. Cardiac enlargement. No overt heart failure. Dictated by: Naman Low M.D. on 10/03/2016 at 14:37 Approved by: Naman Low M.D. on 10/03/2016 at 14:39 ECG 12 Lead EKG 10/03/16 15:25 . Sinus rhythm . Probable left atrial enlargement . Borderline ST depression, lateral leads . When compared with ECG of 03-Dec-2015 13:37:20, . Significant repolarization change . Change in clinical status EKG 10/03/16 16:56 Sinus rhythm . Probable left atrial enlargement . Nonspecific repol abnormality, diffuse leads . When compared with ECG of 03-Oct-2016 15:25:00, . Change in interpretation without significant change in waveform Cardiac Echo Impression Interpretation Summary 1) Borderline dilated left ventricle with borderline reduced systolic function (EF 50-55%). 2) No obvious focal wall motion abnormalities noted but poor endocardial definition reduces the sensitivity for the detection of such. 3) Borderline right ventricular enlargement and normal function. 4) Calcific mitral valve with mild mitral stenosis. 5) Moderate to severe mitral regurgitation present. 6) Mild aortic stenosis present (valve area 1.5cm2, severity ratio 0.49, mean gradient 8mmHg). 7) Pulmonary hypertension, estimated systolic pulmonary pressure of 59mmHg. 8) Compared to the Echo done 03/03/2014, all the above abnormalities are new on today's study. Brief History 71 yo W h/o ESRD on HD, prior CVA, coronary disease status post prior MIs, hypertension, and diabetes admitted with jaw pain. Patient states that she was in her usual state of health until about 3 weeks ago when she started having bilateral jaw pain radiating to her ear. It was worse at nighttime and there was no clear exertional component to it. She will try massage that would help for few minutes. She also had dyspnea 2 nights ago that resolved with hemodialysis yesterday. She denies having chest discomfort, lightheadedness, syncope, nausea, or vomiting. Patient states that she continues to smoke rarely as she is quite disabled from her chronic illnesses and smoking is only thing she enjoys. She also has significant visual impairment and cannot drive. Hospital Course Patient is a 71 y/o female with a hx of ESRD on dialysis, HTN, DM, multiple CVA and ID (last 3 years ago) who presents with aching jaw pain and chest pain. Acute chest pain. Present on admission. - Pt reports chest pain, jaw pain, and shortness of breath which occurs intermittently and not associated with exercise. While this appears to be noncardiac, she has a significant cardiovascular personal and family history. Troponin is chronically elevated, but increased on repeated draws. - EKG as noted above - was on heparin drip - ASA - No beta allison given hypotension - Atorvastatin 40mg qhs - Plavix 300 mg given at ER - Echocardiogram as noted above - PRN Nitro and morphine - Monitored on telemetry - Obtain records from [facility] - Cardiology on consult. Recs: - Continue aspirin 81 mg daily - Continue atorvastatin 40 mg daily - No need for clopidogrel - Consider stress test as outpatient through primary care provider - Recommend using acetaminophen up to 2000mg in 24 hours for jaw pain control. Okay to try ice pack or heat packs. # Moderate to severe mitral regurgitation with pulmonary hypertension: asymptomatic now but she did have dyspnea two days ago that resolved with dialysis. Plan: - Recommend aggressive fluid removal during hemodialysis - Recommend f/u Echo in 6 months # Mild aortic stenosis: asymptomatic. Serial echo in 2 years instead of 3-5 years as I expected her aortic stenosis to progress faster due to her ESRD # ESRD on HD: defer to building insulation supervisor but consider more aggressive fluid removal during hemodialysis End stage renal disease on dialysis - Dialysis on MWF. Pt had Thursday dialysis. Urinalysis positive for moderate leukocyte esterase - wbcs minimal - nitrites negative - asymptomatic Diabetes mellitus - Glucose 132 on admission. Pt not on home meds. Electrolyte abnormalities, acute. - Hypokalemia - given 40 mg K - Hypomagnesemia. resolved History of chronic diastolic congestive heart failure. Last echo 01/01/14: The left ventricle is normal in size. There is normal left ventricular wall thickness. The ejection fraction is estimated to be 60-65%. Hypertension - Continue home furosemide and losartan Hx of stroke - Continue simvastatin Depression - Continue home sertraline Chronic pain - Continue home methadone - Bowel regimen as needed - Antiemetic as needed Exam Vital Signs (Last) Date Time Temp Pulse Resp B/P Pulse Ox O2 Delivery O2 Flow Rate FiO2 10/04/16 12:43 36.8 81 16 122/61 96 Room Air Test 10/03/16 11:00 10/03/16 16:30 10/04/16 05:07 10/04/16 08:46 Urine Color Yellow (YELLOW) Urine Appearance Cloudy (CLEAR,HAZY) Urine pH 6.0 (5.0-8.0) Urine Specific [place] 1.015 (1.003-1.035) Urine Protein 100mg/dL (NEG,TRACE) Urine Glucose (UA) Negativemg/dL (NEGATIVE) Urine Ketones Tracemg/dL (NEGATIVE) Urine Occult Blood Trace (NEGATIVE) Urine Nitrite Negative (NEGATIVE) Urine Bilirubin Moderate (NEGATIVE) Urine Ictotest Negative (Negative) Urine Urobilinogen Normalmg/dL (NORMAL) Urine Leukocyte Esterase Moderate (NEGATIVE) Urine RBC 0-2/hpf (0-2) Urine WBC 6-10/hpf (0-5) Urine Epithelial Cells Many/hpf (NONE-MOD) Urine Crystals None seen (NONE SEEN) Urine Bacteria Many/hpf (NONE-FEW) Urine Hyaline Casts None/lpf (NONE) Urine Granular Casts None seen (NONE SEEN) Urine Waxy Casts None seen (NONE SEEN) Urine Red Blood Cell Casts None seen (NONE SEEN) Urine White Blood Cell Casts None seen (NONE SEEN) Urine Mucus None seen (None Seen) Urine Trichomonas None seen (NONE SEEN) Urine Yeast None (NONE SEEN) Urinalysis Comment None Urine Culture Reflexed Indicated Hold Jones Top Tube Received (Received) White Blood Count 7.9th/mm3 (3.8-10.1) Red Blood Count 3.14mil/mm3 (3.90-5.20) Mean Corpuscular Volume 94.6fL (81-100) Mean Corpuscular Hemoglobin 30.6pg (27.0-35.0) Mean Corpuscular Hemoglobin Concent 32.3% (32.0-37.0) Red Cell Distribution Width 12.9% (12.3-15.4) Platelet Count 199bil/L (150-400) Neutrophils (%) (Auto) 44.1% (40-74) Lymphocytes (%) (Auto) 32.7% (14-46) Monocytes (%) (Auto) 16.7% (4-12) Eosinophils (%) (Auto) 5.6% (0-5) Basophils (%) (Auto) 0.8% (0-3) Erythrocyte Sedimentation Rate 62mm/hr (0-40) Sodium Level 139mEq/L (134-144) Potassium Level 3.4mEq/L (3.5-5.2) Chloride Level 91mEq/L (97-108) Carbon Dioxide Level 28mmol/L (18-29) Blood Urea Nitrogen 14mg/dL (8-27) Creatinine 3.96mg/dL (0.57-1.00) Estimat Glomerular Filtration Rate 16mL/min (>59) Glucose Level 77mg/dL (60-99) Calcium Level 8.3mg/dL (8.5-10.1) Magnesium Level 2.4mg/dL (1.6-2.6) Total Bilirubin 0.5mg/dL (0.0-1.2) Aspartate Amino Transf (AST/SGOT) 18U/L (0-50) Alanine Aminotransferase (ALT/SGPT) 11U/L (0-32) Alkaline Phosphatase 80U/L (25-165) Total Creatine Kinase 125U/L (21-215) Creatine Kinase MB 2.7ng/mL (0.0-5.3) Creatine Kinase MB % % (0.0-5.0) C-Reactive Protein 4.3mg/dL (0.0-0.5) Total Protein 6.0g/dL (6.4-8.4) Albumin 3.3g/dL (3.4-5.0) Triglycerides Level 92mg/dL (0-149) Cholesterol Level 125mg/dL (100-199) LDL Cholesterol, Calculated 60.600mg/dL (0-99) VLDL Cholesterol 18.400mg/dL HDL Cholesterol 46mg/dL (>39) Cholesterol/HDL Ratio 2.72 (0.0-4.4) Hemoglobin 10.6g/dL (12.0-15.6) Hematocrit 32.8% (35.0-46.0) Test 10/04/16 14:15 Activated Partial Thromboplast Time 48.5sec (22.8-33.0) Troponin T 0.103ug/L (0.0-0.011) Discharge Medications Discharge Medications Colestipol HCl (Colestid) 1 Gm Tablet 1 GM PO DAILY (Reported) Furosemide (Furosemide) 80 Mg Tab 80 MG PO DAILY (Reported) Losartan Potassium (Losartan Potassium) 100 Mg Tablet 100 MG PO DAILY (Reported ) Methadone (Methadone) 5 Mg Tablet 2.5 MG PO HS (Reported) Omeprazole (Omeprazole) 20 Mg Capsule.dr 20 MG PO HS (Reported) Sertraline HCl (Sertraline) 100 Mg Tablet 100 MG PO HS (Reported) Simvastatin (Simvastatin) 40 Mg Tablet 40 MG PO HS (Reported) As needed Acetaminophen (Acetaminophen) 325 Mg Tablet 325 MG PO Q6H PRN PRN For Pain Prescribed by: KEM SCHWAB MD Calcium Carbonate (Tums) 500 Mg Tab.chew 1-2 MG PO TIDAC PRN PRN For Indigestion (Reported) Loperamide HCl (Imodium A-D) 2 Mg Capsule 2 MG PO QID PRN PRN For Diarrhea or Loose Stool (Reported) Additional med instructions tylenol prn, not greater than 2000mg a day. Followup Plan Discharge Diet: Renal Diet Discharge Activity: No restrictions Follow-up Provider: Gael Carrasquillo MD Follow-up with PCP in: 1 week (Need an outpatient stress test. Cardiology recs : aggressive fluid removal during dialysis, and repeat echo in 2 hears. ) Time spent 45 mins copies to: Gael Carrasquillo MD, Abhinav MD Oct 04, 2016 16:51
--- NOTE | 2016-10-04 17:36 | NUR ---
DISCHARGE Pt dc'd home at 1730, accompanied off unit in w/c by PROOFER APPRENTICE. Vital signs stable, denies any pain/discomfort and in no apparent distress. IV dc'd intact, all belongings returned. All instructions for diet, activity, medications, prescriptions and follow up reviewed with pt, who reports understanding.
== END 2016-10-04 17:36 | disposition home or self-care (01) ==
LOC: SED 14:48 → UNDOADMOB 20:11 → MPC 20:11
PROVIDERS: ADMIT Internal Medicine; ATTEND Internal Medicine
DX: R68.84 Jaw pain (principal); R07.9 Chest pain, unspecified; I13.2 Hypertensive heart and chronic kidney disease with heart failure and with stage 5 chronic kidney disease, or end stage renal disease; N18.6 End stage renal disease; Z99.2 Dependence on renal dialysis; I25.10 Atherosclerotic heart disease of native coronary artery without angina pectoris; I25.2 Old myocardial infarction; E11.21 Type 2 diabetes mellitus with diabetic nephropathy; E11.42 Type 2 diabetes mellitus with diabetic polyneuropathy; E11.319 Type 2 diabetes mellitus with unspecified diabetic retinopathy without macular edema; D63.1 Anemia in chronic kidney disease; Z86.73 Personal history of transient ischemic attack (TIA), and cerebral infarction without residual deficits; I34.8 Other nonrheumatic mitral valve disorders; I27.2 Other secondary pulmonary hypertension; I50.32 Chronic diastolic (congestive) heart failure; E87.8 Other disorders of electrolyte and fluid balance, not elsewhere classified; F32.9 Major depressive disorder, single episode, unspecified; G89.4 Chronic pain syndrome; E78.5 Hyperlipidemia, unspecified; E66.01 Morbid (severe) obesity due to excess calories; F17.210 Nicotine dependence, cigarettes, uncomplicated; Z66 Do not resuscitate
CPT/HCPCS: 36415; 71010; 80053; 80061; 81000; 82550; 82553; 83036; 83735; 84484; 85014; 85018; 85025; 85651; 85730; 86140; 87086; 87088; 93005; 96374; 96375; 96376; 99285; C8929; G0378; J1170; J1644